=== PATIENT | female | born 1930 | race Caucasian/White ===

== ENCOUNTER 2017-09-18 13:57 | Emergency (ER) | payer MEDICARE ==
[2015-03-07 14:34] VITALS: BMI 27.1
[~2017-09-18 13:57] MED LIST: ARMOUR THYROID60 M1 PO; BUMETANIDE0.5 MG PO; CLARITIN 10 MG10 MG PO; MINOCIN100 MG PO; PREDNISONE5 MG PO; PRILOSEC20 MG PO; ROBAXIN500 MG PO; TENORMIN25 MG PO; TYLENOL W/CODEI1 TAB PO; VIBRAMYCIN 100100 MG PO
[2017-09-18 14:32] LABS: BASOPHILS 0.2 % (0-2); EOSINOPHILS 0.7 % (0-7); HEMATOCRIT 44.8 % (36.0-48.0); HEMOGLOBIN 14.8 g/dL (12-16); IMMATURE GRANULOCYTES 0.2 % (0-5); MCH 29.6 pg (26.0-34.0); MCV 89.6 fL (80.0-100.0); MEAN PLATELET VOLUME 9.7 fL (7.4-10.4); MONOCYTES 10.1 % (2-11); NEUTROPHILS 72.8 % (40-80); RDW 14.2 % (11.5-14.5); WBC 8.5 10x3/uL (4.8-10.8)
[2017-09-18 14:41] LABS: PLATELET COUNT 248 10x3/uL (130-400)
[2017-09-18 14:46] LABS: ANION GAP 13.3 mmol/L (8-16); BILIRUBIN - TOTAL 0.71 mg/dL (0.2-1.3); CALCIUM 9.2 mg/dL (8.5-10.1); CARBON DIOXIDE 27.4 mmol/L (21.0-32.0); CREATININE - SERUM 0.8 mg/dL (0.6-1.3); POTASSIUM - SERUM 3.7 mmol/L (3.5-5.1); PROTEIN - SERUM 6.8 g/dL (6.4-8.2)
[2017-09-18 15:07] LABS: APPEARANCE CLEAR (CLEAR); BILIRUBIN NEGATIVE (NEGATIVE); COLOR YELLOW (YELLOW); GLUCOSE NEGATIVE (NEGATIVE); KETONE NEGATIVE (NEGATIVE); NITRITE NEGATIVE (NEGATIVE); PROTEIN TRACE mg/dL (NEGATIVE); UROBILINOGEN NORMAL (NORMAL)
[2017-09-18 15:10] LABS: BACTERIA FEW /hpf (NONE SEEN)
== END 2017-09-18 17:25 | disposition home or self-care (01) ==
LOC: D.ER 13:57
PROVIDERS: Emergency Medicine
DX: S09.93XA Unspecified injury of face, initial encounter (principal); W19.XXXA Unspecified fall, initial encounter; Y93.89 Activity, other specified; Y92.009 Unspecified place in unspecified non-institutional (private) residence as the place of occurrence of the external cause; G45.9 Transient cerebral ischemic attack, unspecified; S02.2XXA Fracture of nasal bones, initial encounter for closed fracture; N39.0 Urinary tract infection, site not specified; M35.00 Sjogren syndrome, unspecified; I45.4 Nonspecific intraventricular block